=== PATIENT | male | born 1950 | race Caucasian/White ===

== ENCOUNTER 2019-02-15 13:24 | Observation (INO) | payer OTHER ==
[2019-02-15] MEDS ORDERED: NS 1,000 ML IV ONE (13:32)
--- NOTE | 2019-02-15 13:38 | EDPHY ---
H & P Stated Complaint: Altered mental status Time Seen by Provider: 02/15/19 13:40 HPI/ROS: CHIEF COMPLAINT: Altered mental status HISTORY OF PRESENT ILLNESS: Patient is a 68-year-old Sreekanth Alvarado who is brought in emergent by ambulance. His roommate told paramedics that about 45 min prior to arrival he suddenly became unresponsive. By this she meant that she heard a large thud and then found him lying on the ground with his eyes open. When paramedics arrived they began to get him in the gurney and he became combative. Roommate denied any significant past medical history or medications. The patient does take several or herbal medications. Paramedics then gave him 150 of ketamine intranasally and 5 of IV Valium. After this he became somnolent and decreased respirations and required bagging in the ambulance. He was brought emergently. He was moving all of his extremities for them. Severity: Severe Modifying factors: None REVIEW OF SYSTEMS: Unable to obtain secondary to condition EXAM: GENERAL: Thin, somnolecent, stable vital signs HEAD: Small hematoma to the back of the head on the left EYES: Pupils slightly small but equal round and reactive to light, sclera anicteric, conjunctiva are normal. ENT: TMs normal, nares patent with nasal trumpet in place, small maceration to the right side of his tongue as well as to the left upper lip and right lower lip. Moist mucous membranes. NECK: No bony step-offs or deformities. LUNGS: Breath sounds clear to auscultation bilaterally and equal. No wheezes rales or rhonchi. HEART: Regular rate and rhythm without murmurs, rubs or gallops. ABDOMEN: Soft, normoactive bowel sounds. No masses appreciated. No incontinence BACK: no spinal tenderness, step-offs or deformities EXTREMITIES: Moving all extremities spontaneously NEUROLOGICAL: Does not respond to commands. Minimal response to pain. PSYCH: Unable to assess SKIN: Warm, dry, normal turgor, no visible rashes or lesions. Source: Patient, EMS Exam Limitations: Clinical condition - Medical/Surgical History Hx Asthma: No Hx Chronic Respiratory Disease: No Hx Diabetes: No Hx Cardiac Disease: No Hx Renal Disease: No Hx Cirrhosis: No Hx Alcoholism: No Hx HIV/AIDS: No Hx Splenectomy or Spleen Trauma: No - Family History Significant Family History: No pertinent family hx - Social History Smoking Status: Never smoked Alcohol Use: None Constitutional: Initial Vital Signs Temperature (C) 36.9 C 02/15/19 13:34 Heart Rate 74 02/15/19 13:34 Respiratory Rate 20 02/15/19 13:34 Blood Pressure 132/80 H 02/15/19 13:34 O2 Sat (%) 97 02/15/19 13:34 O2 Delivery Mode Nasal Cannula O2 (L/minute) 2 Allergies/Adverse Reactions: No Known Allergies Allergy (Unverified 02/15/19 14:53) Home Medications: Medication Instructions Recorded NK [No Known Home Meds] 02/15/19 Medical Decision Making - Diagnostics EKG Interpretation: An EKG obtained and was read and documented in trace view. Please see trace view for full reading and report. Sinus rhythm, no acute ischemic changes Imaging: Discussed imaging studies w/ call or contact centre manager Radiologist ED Course/Re-evaluation: Dry read of patient's CT scan is unremarkable. Patient is beginning to wake up. He states that he has never had a seizure before. He is moving all extremities and following commands. He denies headache or pain. He denies recent illness. 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 His roommate is here and states that she heard several sighs and moans in the other room and when she went to see him he looked like he had fallen into a sitting position and was slowly lying down onto the ground but was unconscious. He was unresponsive and this is when she called EMS. When EMS arrived he became combative and was sedated. Roommate and patient both deny any significant alcohol abuse. 2:30 p.m. I discussed the case with Dr. David Oreilly who requests lumbar puncture and will admit. 3:20 p.m. the patient is more aware. He continues to improve. At this point he is refusing lumbar puncture. Differential Diagnosis: Partial list of the Differential diagnosis considered include but were not limited to; seizure, intracranial hemorrhage, CVA, alcohol withdrawal, substance abuse and although unlikely based on the history and physical exam, I also considered dissection, infection, MS. - Data Points Laboratory Results: Laboratory Results 02/15/19 13:37 02/15/19 13:37 Medications Given: Discontinued Medications Sodium Chloride (Ns) 1,000 mls @ 0 mls/hr IV ONCE ONE; Wide Open PRN Reason: Protocol Stop: 02/15/19 13:33 Last Admin: 02/15/19 14:18 Dose: 1,000 mls Levetiracetam (Keppra) 500 mg PO BID [facility] Stop: 08/14/19 18:14 Last Admin: 02/16/19 10:25 Dose: Not Given Point of Care Test Results: Chemistry 02/15/19 13:41 POC Sodium 141 mEq/L mEq/L (135-145) POC Potassium 4.0 mEq/L mEq/L (3.3-5.0) POC Chloride 103 mEq/L mEq/L (97-110) POC Total CO2 21 mEq/L L mEq/L (22-31) POC BUN 14 mg/dL mg/dL (7-23) POC Creatinine 1.2 mg/dL mg/dL (0.7-1.3) POC Glucose 122 mg/dL H mg/dL (70-100) ISTAT H&H 02/15/19 13:41 POC Hgb 15.0 gm/dL gm/dL (13.7-17.5) POC Hct 44 % % (40-51) Departure - Departure Disposition: [facility] Inpatient Acute Clinical Impression: Seizure Condition: Fair
[2019-02-15 14:00] LABS: PLATELET COUNT 180 10^3/uL (150-400)
--- NOTE | 2019-02-15 14:04 | CPEKG ---
Test Reason : OPEN Blood Pressure : / mmHG Vent. Rate : 076 BPM Atrial Rate : 076 BPM P-R Int : 166 ms QRS Dur : 087 ms QT Int : 386 ms P-R-T Axes : 078 058 041 degrees QTc Int : 435 ms Sinus rhythm Probable left atrial enlargement Confirmed by Marvin Wu ([id number]) on 02/15/2019 2:03:44 PM Referred By: Marvin Wu Confirmed By:Marvin Wu
[2019-02-15] MEDS ORDERED: ACETAMINOPHEN 325 MG TAB PO PRN (15:44)
[2019-02-15] MEDS ORDERED: ONDANSETRON DISINTEGRATING 4 MG TAB PO PRN (15:44)
[2019-02-15] MEDS ORDERED: ONDANSETRON 4 MG/2 ML VIAL IVP PRN (15:44)
--- NOTE | 2019-02-15 16:03 | PDGENHP ---
History and Physical - Chief Complaint Possible seizure - History of Present Illness 68 y/o male w/no PMH presents by ambulance after sustaining what is thought to be a first-time seizure. He is a poor historian and poor memory, gathering information is difficult. He repeatedly asked the same questions however he knows his name and the fact he is in the hospital. Roommate was at bedside. She reports earlier today, he was in the kitchen and began to make "funny noises ," she heard a thud and found him slumped over with his eyes wide open not responding. He was not moving. Paramedics arrived and apparently he woke up and was combative - he was given Ketamine and Valium to which decreased his respirations and required bagging en route to ED. He was evaluated in the ED, appearing discombobulated, dried blood noted on his lips. Appears he bit down on his tongue and lip. Endorses mild nausea and diplopia otherwise, no other complaints. He repeats, "I'm neurologically out of it." He is slowly regaining his memory per his roommate. Initial imaging and labwork are unremarkable. He is being admitted for further testing and monitoring. History Information - Allergies/Home Medication List Allergies/Adverse Reactions: No Known Allergies Allergy (Unverified 02/15/19 14:53) Home Medications: NK [No Known Home Meds] 02/15/19 [Last Taken Unknown] I have personally reviewed and updated: family history, medical history, social history, surgical history - Past Medical History no pertinent PMH - Surgical History Reports: no pertinent surgical hx - Family History Positive for: cancer (Mother had alzheimers. Father of prostate cancer. 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 Temp Pulse Resp BP Pulse Ox 36.5 C 64 12 139/84 H 95 02/15/19 15:49 02/15/19 15:49 02/15/19 15:49 02/15/19 15:49 02/15/19 15:49 Constitutional: uncomfortable Eyes: PERRL, anicteric sclera, EOMI Ears, Nose, Mouth, Throat: moist mucous membranes, ears appear normal, no oral mucosal ulcers, other (Laceration buccal) Cardiovascular: regular rate and rhythym, no murmur, rub, or gallop, No edema Peripheral Pulses: 2+: dorsalis-pedis (R) (Radial 2+), dorsalis-pedis (L) ( Radial 2+) Respiratory: no respiratory distress, no rales or rhonchi, clear to auscultation Gastrointestinal: normoactive bowel sounds, soft, non-tender abdomen, no palpable masses Genitourinary: no bladder fullness, no bladder tenderness Skin: warm, normal color, no rashes or abrasions, no fluctuance, no induration, No mottled Musculoskeletal: full muscle strength, no muscle tenderness, normal joint ROM, no joint effusions Neurologic: sensation intact bilaterally Psychiatric: poor memory, other (He is slow to process information, repeatedly asks same questions) Lymph, Heme, Immunologic: no cervical LAD, no supraclavicular LAD Lab Data & Imaging Review 02/15/19 13:37 02/15/19 13:37 WBC 6.06 10^3/uL (3.80-9.50) 02/15/19 13:37 RBC 4.74 10^6/uL (4.40-6.38) 02/15/19 13:37 Hgb 14.4 g/dL (13.7-17.5) 02/15/19 13:37 POC Hgb 15.0 gm/dL (13.7-17.5) 02/15/19 13:41 Hct 43.5 % (40.0-51.0) 02/15/19 13:37 POC Hct 44 % (40-51) 02/15/19 13:41 MCV 91.8 fL (81.5-99.8) 02/15/19 13:37 MCH 30.4 pg (27.9-34.1) 02/15/19 13:37 MCHC 33.1 g/dL (32.4-36.7) 02/15/19 13:37 RDW 13.6 % (11.5-15.2) 02/15/19 13:37 Plt Count 180 10^3/uL (150-400) 02/15/19 13:37 MPV 10.0 fL (8.7-11.7) 02/15/19 13:37 Neut % (Auto) 46.7 % (39.3-74.2) 02/15/19 13:37 Lymph % (Auto) 44.4 % (15.0-45.0) 02/15/19 13:37 Cataño % (Auto) 6.1 % (4.5-13.0) 02/15/19 13:37 Eos % (Auto) 1.3 % (0.6-7.6) 02/15/19 13:37 Baso % (Auto) 0.7 % (0.3-1.7) 02/15/19 13:37 Nucleat RBC Rel Count 0.0 % (0.0-0.2) 02/15/19 13:37 Absolute Neuts (auto) 2.83 10^3/uL (1.70-6.50) 02/15/19 13:37 Absolute Lymphs (auto) 2.69 10^3/uL (1.00-3.00) 02/15/19 13:37 Absolute Monos (auto) 0.37 10^3/uL (0.30-0.80) 02/15/19 13:37 Absolute Eos (auto) 0.08 10^3/uL (0.03-0.40) 02/15/19 13:37 Absolute Basos (auto) 0.04 10^3/uL (0.02-0.10) 02/15/19 13:37 Absolute Nucleated RBC 0.00 10^3/uL (0-0.01) 02/15/19 13:37 Immature Gran % 0.8 % (0.0-1.1) 02/15/19 13:37 Immature Gran # 0.05 10^3/uL (0.00-0.10) 02/15/19 13:37 VBG Lactic Acid 1.9 mmol/L (0.7-2.1) 02/15/19 15:34 POC Sodium 141 mEq/L (135-145) 02/15/19 13:41 Sodium 138 mEq/L (135-145) 02/15/19 13:37 POC Potassium 4.0 mEq/L (3.3-5.0) 02/15/19 13:41 Potassium 4.2 mEq/L (3.5-5.2) 02/15/19 13:37 POC Chloride 103 mEq/L (97-110) 02/15/19 13:41 Chloride 104 mEq/L (97-110) 02/15/19 13:37 Carbon Dioxide 20 mEq/l (22-31) L 02/15/19 13:37 POC Total CO2 21 mEq/L (22-31) L 02/15/19 13:41 Anion Gap 14 mEq/L (6-14) 02/15/19 13:37 POC BUN 14 mg/dL (7-23) 02/15/19 13:41 BUN 15 mg/dL (7-23) 02/15/19 13:37 Creatinine 1.2 mg/dL (0.7-1.3) 02/15/19 13:37 POC Creatinine 1.2 mg/dL (0.7-1.3) 02/15/19 13:41 Estimated GFR 60 02/15/19 13:37 Glucose 114 mg/dL (70-100) H 02/15/19 13:37 POC Glucose 122 mg/dL (70-100) H 02/15/19 13:41 Calcium 8.8 mg/dL (8.5-10.4) 02/15/19 13:37 Prolactin 63.6 ng/mL (3.7-17.9) H 02/15/19 13:33 Ethyl Alcohol < 10 mg/dL (0-10) 02/15/19 13:37 Patient ABO/Rh O POSITIVE 02/15/19 13:37 Antibody Screen NEGATIVE 02/15/19 13:37 Assessment & Plan Plan: 68 y/o male w/no PMH presents w/ suspected first-time seizure, found unresponsive with eyes open in his house by his roommate. Differential diagnoses include but not limited to: TIA, CVA, seizure, infection, brain mass #Neurological impairment: Cervical spine and Head CT w/o contrast reveal no acute posttraumatic abnormality identified and multilevel degenerative change most prominent from C5-C7 (cervical spine imaging). Head CT unremarkable. Per pt, he is not a "medicine person," and believes since he received Ketamine and Valium, this is inhibiting him neurologically which is plausible. -LP recommended to r/o infection however pt is currently refusing at this time -Brain MRI W/wo IV contrast pending -Lactic acid/Mag/TSH unremarkable. prolactic elevated 63.6 -Neurology to consult -WATCH DIAL MAKER to evaluate and treat -Seizure precautions -PT/OT to evaluate and treat -Initiated Keppra 500 mg BID Diet: One time swallow eval by RN then regular diet Code: Full Dispo: Admit to obs
[2019-02-15] MEDS ORDERED: GADOBUTROL 10 ML VIAL IVP ONE (16:56)
--- NOTE | 2019-02-15 17:56 | HOSPPROG ---
Hospitalist Progress Note Assessment/Plan: patient seen/examined//discussed w RASHARD Amaya. 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 MRI w and w/o pending. currently declining LP 1. await MRI 2. start keppra he may decline this 3. i have recommended LP, he is declining at this point v zuleima low suspicion for bacterial infection Objective: Vital Signs Temp Pulse Resp BP Pulse Ox 36.5 C 64 12 139/84 H 95 02/15/19 15:49 02/15/19 15:49 02/15/19 15:49 02/15/19 15:49 02/15/19 15:49 02/14/19 02/15/19 02/16/19 05:59 05:59 05:59 Intake Total 1000 Balance 1000
[2019-02-15] MEDS: levETIRAcetam 500 MG TAB PO SCH (19:47)
[2019-02-16 05:16] LABS: PLATELET COUNT 180 10^3/uL (150-400)
[2019-02-16 08:09] VITALS: BP 120/72
--- NOTE | 2019-02-16 08:20 | GCON ---
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 The history is obtained from reviewing the medical records, as well as direct conversations with the patient. He was at home yesterday when the event occurred. 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 The description from the roommate who was there at the time was there wa s a sound of presumed falling when he struck the floor, and he was lying on the ground with his eyes open and stiff, and apparently pale by her report. The rescue squad arrived and he was somewhat comb ative, and this led to dosing with ketamine intranasally and 5 mg of IV Valium, and then he became mo re somnolent and needed some bagging just to minimize desaturation. The patient has never had a etelvina lar event before. He says he has not had any head trauma. No family history of seizure. He has a b rother with a family history of glioblastoma in his 50s. He did not experience focal numbness or wea kness or chest pain or palpitations that he can recall. He bit his tongue and lip, and says that oth er than that and a little chest soreness, he feels fine. In the emergency department, he was evaluat ed and found to have a temperature of 36.9, pulse of 74, blood pressure was 132/80, and O2 saturation was 97%. He had a cervical spine film that was unremarkable. Unremarkable head CT. His bicarbonat e level was 20, otherwise, normal electrolytes except for minimal elevation of sugar at 114. Sinus r hythm on EKG. He has subsequently been admitted for monitoring, and has refused lumbar puncture or anticonvulsant t herapy which was being considered. He has not had any recurrent episodes. The brain MRI is unremark able. The tox screen was negative. Labs today are normal on chemistries and liver enzymes. He had a mildly elevated prolactin level when he came in of 63. The sedimentation rate is 1. EXAMINATION: VITAL SIGNS: Blood pressure is 128/78, pulse of 60, respirations 16, temperature 36.7. He is well developed, in no acute distress. Eyes are clear. Neck is supple. No bruits or masses seen. He has some bruising in the left upper lip. He has some bruising at his left great toe. He i s alert and oriented with no cognitive impairment. He is amnestic for the details of the event. Pup ils 3 mm and reactive. Extraocular movements are intact. Normal facial sensation and strength. Hea ring is preserved. MOTOR: Normal muscle bulk and tone, 5/5 strength. Normal sensation. IMPRESSION: Total unit time of 55 minutes. The patient has experienced a probable seizure, although the precipitating source is uncertain. Differential consideration does include a primary epileptic syndrome, but I think that is less likely than a syncopal event with syncopal seizure phenomenon and then a postictal state. The pallor described would be more suggestive of a syncopal event with resul tant secondary seizure rather than a primary epileptic event where cyanosis is more common. However, this is nonspecific and we cannot be certain. He is advised that he is not safe to drive for 3 liset hs, and he acknowledges that. He understands that he could have recurrent events, but there is not a clear indication for anticonvulsant therapy at this point. With a normal exam and normal MRI, EEG m ight yield further information, but he would prefer not doing that, so we will defer on that and I ca nceled that. I do not think lumbar puncture is needed at this point. He is requesting a vitamin D l evel be checked because he has been taking 5000 unit supplementation 3 or 4 days a week. I think he can safely be discharged and follow up with me only as needed if there are any more recurrent events, and we talked about that, and recommendations to avoid unsupervised swimming or taking baths without someone being aware of what is happening. /[id number]/MODL
--- NOTE | 2019-02-16 09:59 | ASMTLACE ---
YOUNG Length of stay for Answers: 2 days current admission Acuity / Level of Answers: No Care: Did the patient have an inpatient admission? # of Emergency department Answers: 1-2 visits in the last 6 months Score: 3 Date Signed: 02/16/2019 09:58 AM Electronically Signed By:BRIANA Johnson
[2019-02-16] MEDS: levETIRAcetam 500 MG TAB PO SCH (10:25)
--- NOTE | 2019-02-16 16:06 | PDDCSUM ---
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 Episode was witnessed by his roommate said that he heard a thud and then saw his remained on the floor. EMS arrived and patient was combative requiring intranasal ketamine and Valium which subsequently caused him to become hypoxic. A CT head and neck was obtained in the emergency room which was unremarkable. Subsequently MRI brain was obtained which also was unremarkable and showed no acute abnormality. He refused a lumbar puncture and neurology was consulted. Neurology felt that this likely recommended a probable seizure with unknown precipitating source. Neurology did not think that an EEG would provide much more information and did not think a lumbar puncture was warranted. Given it was his 1st episode he did not think that starting antiepileptic medication was warranted at this time either. Neurology did advise him that he was unsafe to drive for 3 months. Ultimately neurology felt that he was safe to discharge home and follow up with them as needed in their office. On the day discharge patient fell well was requesting discharge tolerating p. O. And had a normal physical exam with normal vital signs. He was discharged home to follow up with his primary care physician and Neurology if needed for further evaluation of his condition. Disposition Home in good condition Consultation Neurology Dr. Ashby
== END 2019-02-16 09:45 | disposition home or self-care (01) ==
LOC: EDBD 13:24 → F3N 15:42
PROVIDERS: ADMIT Internal Medicine; ATTEND Internal Medicine
DX: R56.9 Unspecified convulsions (principal); E86.9 Volume depletion, unspecified; S00.83XA Contusion of other part of head, initial encounter; W19.XXXA Unspecified fall, initial encounter; Y92.010 Kitchen of single-family (private) house as the place of occurrence of the external cause
CPT/HCPCS: 70450; 70553; 72125; 93005; 99285; A9585; G0378; J2405; 80305; 82435-PO; 82565-PO; 82652-90; 82947-PO; 84132-PO; 84295-PO; 84520-PO; 85014-ER; 86141-90; G0480